=== PATIENT | female | born 1980 | race Caucasian/White ===

== ENCOUNTER 2018-04-14 18:16 | Emergency (ER) | payer MEDICAID, OTHER ==
[~2018-04-14 18:16] MED LIST: AUG500 PO; CEP500 PO; CIP500 PO; DIA5 PO; HYDR-3083 PO; IBU800 PO; IBUP-1618 PO; LOR5 PO; MEC25 PO; MET800 PO; METANXPT PO; MULT1CAP41 PO; MULTIVITAMIN; PER PO; PRE20 PO; PREN-67 PO; PRO25 PO; TRA50 PO; [UNRECOGNIZED DRUG - OTHER]; vitamins
[2018-04-14] MEDS ORDERED: NS(*) 0.9% 1000 ML BAG 1,000 ML IV ONE (18:53)
--- NOTE | 2018-04-14 18:53 | ER Report ---
History and Physical Time Seen By MD: 18:50 Hx. of Stated Complaint: ABD PRESSURE X 2 DAYS, TODAY VOMITING. PT REPORTS SEEING MD IN [place] AND TOLD THAT HER APPENDIX IS "ENLARGED" AND TOLD TO "WATCH IT" HPI/ROS CHIEF COMPLAINT: Abdominal pain HISTORY OF PRESENT ILLNESS: 37 year-old female presents to the ER complaining of severe right upper quadrant and right lower quadrant abdominal pain. Patient was seen in the ER and weak in 2 days ago. States she had a CAT scan to evaluate her right lower abdominal pain. She states that she had an enlarged appendix. She was advised a clear liquid diet. Patient notes that her pain is worse. She's been having some fever and chills. She's had no diarrhea, but notes severe nausea and no vomiting. Patient denies dysuria. Patient has a history of a . REVIEW OF SYSTEMS: Respiratory: No cough, no dyspnea. Cardiovascular: No chest pain, no palpitations. Gastrointestinal: As above Musculoskeletal: No back pain. Allergies: Coded Allergies: mustard (Verified Allergy, Mild, 04/14/18) venom-wasp (Verified Allergy, Mild, 04/14/18) Uncoded Allergies: BEE STINGS (Allergy, Mild, 06/18/09) Home Meds Active Scripts Promethazine Hcl (PROMETHAZINE HCL) 25 Mg Tablet, 25 MG PO Q4H PRN for NAUSEA/VOMITING, #14 TAB Prov:CHIP MOCK DO 04/14/18 Tramadol Hcl (TRAMADOL HCL) 50 Mg Tablet, 1 TAB PO Q4-6H for PAIN, #12 TAB Prov:CHIP MOCK DO 04/14/18 Reported Medications Tramadol Hcl (Ultram) 50 Mg Tab, 50 MG PO Q4-6H, 0 Refills 04/21/11 Hydrocodone Bit/Acetaminophen (Hydrocodone/Apap 7.5/500 Tb) 1 Each Tablet, 1 EACH PO Q4-6H, 0 Refills 04/21/11 Ibuprofen (Motrin) 400 Mg Tablet, 400 MG PO, #20 0 Refills 04/21/11 [vitamins] No Conflict Check, 0 Refills 04/21/11 Reviewed Nurses Notes: Yes Old Medical Records Reviewed: Yes Hx Smoking: No Hx Substance Use Disorder: No Hx Alcohol Use: No Constitutional Vital Sign - Last 24 Hours 04/14/18 04/14/18 04/14/18 04/14/18 18:30 19:00 19:01 19:16 Pulse 80 99 74 Resp 16 B/P (MAP) 132/102 124/95 (105) Pulse Ox 98 96 92 O2 Delivery Room Air 04/14/18 04/14/18 04/14/18 04/14/18 19:30 19:31 20:00 20:01 Pulse 72 81 B/P (MAP) 113/69 (84) 104/75 (85) Pulse Ox 90 90 04/14/18 04/14/18 04/14/18 04/14/18 20:06 20:30 20:36 20:51 Pulse 73 69 67 B/P (MAP) 103/62 (76) Pulse Ox 94 93 94 04/14/18 04/14/18 04/14/18 04/14/18 21:00 21:06 21:21 21:30 Pulse 70 80 B/P (MAP) 114/57 (76) 96/64 (75) Pulse Ox 92 92 04/14/18 04/14/18 04/14/18 04/14/18 21:36 21:51 22:00 22:05 Pulse 66 62 70 B/P (MAP) 97/69 (78) Pulse Ox 93 88 91 Physical Exam Vital signs stable, pulse ox normal General Appearance: The patient is alert, has no immediate need for airway protection and no current signs of toxicity. Mild distress, slightly pale appearing HEENT: Pupils equal and round no injection. TMs normal, oropharynx are redness or exudate, mucous members are moist Respiratory: Chest is non tender, lungs are clear to auscultation. Cardiac: regular rate and rhythm Gastrointestinal: Abdomen is soft, moderate tenderness in the right upper and right lower quadrant, there is some guarding in the right lower quadrant, no masses, bowel sounds normal. Musculoskeletal: Neck: Neck is supple and non tender. Extremities have full range of motion and are non tender. Skin: No rashes or lesions. DIFFERENTIAL DIAGNOSIS: After history and physical exam differential diagnosis was considered for abdominal pain including but not limited to appendicitis, cholecystitis, gastritis and urinary tract infection. Medical Decision Making Data Points Result Diagram: 04/14/18189904/14/181899 Laboratory Hematology Test 04/14/18 18:52 04/14/18 19:00 Urine Color Yellow Urine Clarity Clear Urine pH 5.0 pH (4.8-9.5) Urine Specific Mabel 1.018 Urine Protein Negative mg/dL (NEGATIVE) Urine Glucose (UA) Negative mg/dL (NEGATIVE) Urine Ketones Negative mg/dL (NEGATIVE) Urine Blood Negative (NEGATIVE) Urine Nitrite Negative (NEGATIVE) Urine Bilirubin Negative (NEGATIVE) Urine Urobilinogen Negative mg/dL (0.2-1.9) Urine Leukocyte Esterase Negative (NEGATIVE) Urine RBC 1 /HPF (0-2/HPF) Urine WBC <1 /HPF (0-5/HPF) Urine Squamous Epithelial Cells None /LPF (</=FEW) Urine Bacteria Negative /HPF (NONE-FEW) Urine Mucus None /HPF (NONE-FEW) Red Blood Count 4.63 M/uL (4.17-5.56) Mean Corpuscular Volume 91.5 fL (80.0-96.0) Mean Corpuscular Hemoglobin 31.4 pg (26.0-33.0) Mean Corpuscular Hemoglobin Concent 34.3 g/dL (32.0-36.0) Red Cell Distribution Width 17.7 % (11.5-14.5) Mean Platelet Volume 7.8 fL (7.2-11.1) Neutrophils (%) (Auto) 49.5 % (39.4-72.5) Lymphocytes (%) (Auto) 40.6 % (17.6-49.6) Monocytes (%) (Auto) 7.2 % (4.1-12.4) Eosinophils (%) (Auto) 0.9 % (0.4-6.7) Basophils (%) (Auto) 1.8 % (0.3-1.4) Nucleated RBC Relative Count (auto) 0.4 /100WBC Neutrophils # (Auto) 5.2 K/uL (2.0-7.4) Lymphocytes # (Auto) 4.3 K/uL (1.3-3.6) Monocytes # (Auto) 0.8 K/uL (0.3-1.0) Eosinophils # (Auto) 0.1 K/uL (0.0-0.5) Basophils # (Auto) 0.2 K/uL (0.0-0.1) Nucleated RBC Absolute Count (auto) 0.04 K/uL Sodium Level 138 mmol/L (137-145) Potassium Level 4.0 mmol/L (3.5-5.0) Chloride Level 102 mmol/L (98-107) Carbon Dioxide Level 23 mmol/L (22-31) Blood Urea Nitrogen 13 mg/dl (7-18) Creatinine 0.70 mg/dl (0.52-1.04) Glomerular Filtration Rate Calc > 60.0 Random Glucose 95 mg/dl (75-110) Lactate 1.8 mmol/L (0.7-2.1) Calcium Level 9.6 mg/dl (8.4-10.2) Total Bilirubin 0.9 mg/dl (0.2-1.3) Aspartate Amino Transf (AST/SGOT) 104 U/L (0-35) Alanine Aminotransferase (ALT/SGPT) 213 U/L (0-56) Alkaline Phosphatase 130 U/L (0-126) Total Protein 8.5 g/dl (6.3-8.2) Albumin 4.6 g/dl (3.5-5.0) Amylase Level 62 U/L (0-110) Lipase 177 U/L (23-300) Human Chorionic Gonadotropin, Qual Negative (NEGATIVE) Chemistry Test 04/14/18 18:52 04/14/18 19:00 Urine Color Yellow Urine Clarity Clear Urine pH 5.0 pH (4.8-9.5) Urine Specific Mabel 1.018 Urine Protein Negative mg/dL (NEGATIVE) Urine Glucose (UA) Negative mg/dL (NEGATIVE) Urine Ketones Negative mg/dL (NEGATIVE) Urine Blood Negative (NEGATIVE) Urine Nitrite Negative (NEGATIVE) Urine Bilirubin Negative (NEGATIVE) Urine Urobilinogen Negative mg/dL (0.2-1.9) Urine Leukocyte Esterase Negative (NEGATIVE) Urine RBC 1 /HPF (0-2/HPF) Urine WBC <1 /HPF (0-5/HPF) Urine Squamous Epithelial Cells None /LPF (</=FEW) Urine Bacteria Negative /HPF (NONE-FEW) Urine Mucus None /HPF (NONE-FEW) White Blood Count 10.5 k/uL (4.5-11.0) Red Blood Count 4.63 M/uL (4.17-5.56) Hemoglobin 14.5 g/dL (12.0-16.0) Hematocrit 42.3 % (34.0-47.0) Mean Corpuscular Volume 91.5 fL (80.0-96.0) Mean Corpuscular Hemoglobin 31.4 pg (26.0-33.0) Mean Corpuscular Hemoglobin Concent 34.3 g/dL (32.0-36.0) Red Cell Distribution Width 17.7 % (11.5-14.5) Platelet Count 428 K/uL (150-450) Mean Platelet Volume 7.8 fL (7.2-11.1) Neutrophils (%) (Auto) 49.5 % (39.4-72.5) Lymphocytes (%) (Auto) 40.6 % (17.6-49.6) Monocytes (%) (Auto) 7.2 % (4.1-12.4) Eosinophils (%) (Auto) 0.9 % (0.4-6.7) Basophils (%) (Auto) 1.8 % (0.3-1.4) Nucleated RBC Relative Count (auto) 0.4 /100WBC Neutrophils # (Auto) 5.2 K/uL (2.0-7.4) Lymphocytes # (Auto) 4.3 K/uL (1.3-3.6) Monocytes # (Auto) 0.8 K/uL (0.3-1.0) Eosinophils # (Auto) 0.1 K/uL (0.0-0.5) Basophils # (Auto) 0.2 K/uL (0.0-0.1) Nucleated RBC Absolute Count (auto) 0.04 K/uL Glomerular Filtration Rate Calc > 60.0 Lactate 1.8 mmol/L (0.7-2.1) Calcium Level 9.6 mg/dl (8.4-10.2) Total Bilirubin 0.9 mg/dl (0.2-1.3) Aspartate Amino Transf (AST/SGOT) 104 U/L (0-35) Alanine Aminotransferase (ALT/SGPT) 213 U/L (0-56) Alkaline Phosphatase 130 U/L (0-126) Total Protein 8.5 g/dl (6.3-8.2) Albumin 4.6 g/dl (3.5-5.0) Amylase Level 62 U/L (0-110) Lipase 177 U/L (23-300) Human Chorionic Gonadotropin, Qual Negative (NEGATIVE) Urinalysis Test 04/14/18 18:52 Urine Color Yellow Urine Clarity Clear Urine pH 5.0 pH (4.8-9.5) Urine Specific Mabel 1.018 Urine Protein Negative mg/dL (NEGATIVE) Urine Glucose (UA) Negative mg/dL (NEGATIVE) Urine Ketones Negative mg/dL (NEGATIVE) Urine Blood Negative (NEGATIVE) Urine Nitrite Negative (NEGATIVE) Urine Bilirubin Negative (NEGATIVE) Urine Urobilinogen Negative mg/dL (0.2-1.9) Urine Leukocyte Esterase Negative (NEGATIVE) Urine RBC 1 /HPF (0-2/HPF) Urine WBC <1 /HPF (0-5/HPF) Urine Squamous Epithelial Cells None /LPF (</=FEW) Urine Bacteria Negative /HPF (NONE-FEW) Urine Mucus None /HPF (NONE-FEW) EKG/Imaging Imaging Results: CT scan of the abdomen and pelvis with IV contrast was obtained. The results of the study are COMPUTED TOMOGRAPHY OF THE Abdomen and Pelvis with CONTRAST INDICATION: Abdominal pain x3 days. TECHNIQUE: Contiguous axial 3.[address] images were obtained through the abdomen and pelvis with contrast. Coronal and sagittal reformatted images were s ubmitted. COMPARISON: None. FINDINGS: Lung bases: The lung bases are clear. Liver and hepatic vasculature: No focal liver lesion. Gallbladder and bile ducts: Normal Spleen: Normal Pancreas: Normal Adrenals: Normal Kidneys, ureters and bladder: No hydronephrosis or obstruction. No stones. Normal-appearing bladder. Probable small cyst of the right kidney. Retroperitoneum and aorta: Normal caliber aorta. GI tract, mesentery and peritoneum: No bowel obstruction. No free fluid or free air. Normal appendix. No findings of diverticulitis. Uterus and adnexa: 1.7 cm cystic structure at the right ovary is likely an involuting cyst. Bones and soft tissues: No acute osseous abnormality. Small fat-containing paraumbilical hernia. IMPRESSION: 1. Normal appendix. 2. Probable involuting 1.7 cm cyst at the right ovary. The study was read by the radiologist. I viewed the images myself on the PACS system. Results: Ultrasound of the right upper quadrant abdominal was obtained. The results of the study are EXAMINATION: Limited right upper quadrant ultrasound Additional Pertinent history: Right upper quadrant pain. Elevated liver function tests. COMPARISON STUDIES: CT of the abdomen pelvis done earlier in the day. FINDINGS: Gallbladder: no stones, sludge, wall thickening or pericholecystic fluid. Negative ultrasound Burns sign. Liver: Normal size and echotexture. No focal normality. Liver surface is smooth. Portal vein is patent. No ascites. Common duct: normal 2.7 mm. Pancreas: No focal abnormality. Right kidney: negative Proximal IVC/Aorta: negative IMPRESSION: Normal right upper quadrant ultrasound. The study was read by the radiologist. I viewed the images myself on the PACS system. ED Course/Re-evaluation Clinical Indication for ER IV: Hydration, IV Access ED Course Patient was minute to an examination room. H&P was done. The differential diagnoses was considered. On clinical examination. Patient has both right upper quadrant and right lower quadrant. She had a CAT scan 2 days ago that showed an enlarged appendix. Patient's diagnostic studies are unremarkable except for elevated LFTs and alkaline phosphatase suspicious for cholecystitis. A CT scan of the abdomen and pelvis was unremarkable. An ultrasound of the right upper quadrant showed no pathology. Patient may have gallbladder sludge and may need a hiatus scan. She is advised to follow-up with general surgery for endoscopy and I did scan or any other diagnostic testing. That seems appropriate. Patient was discharged home on tramadol for pain and Phenergan for nausea control. Decision to Disposition Date: Apr 14, 2018 Decision to Disposition Time: 22:03 Depart Departure Latest Vital Signs Vital Signs Date Time Temp Pulse Resp B/P (MAP) Pulse Ox O2 Delivery O2 Flow Rate FiO2 04/14/18 22:05 70 91 04/14/18 22:00 97/69 (78) 04/14/18 18:30 16 Room Air Impression: Primary Impression: Abdominal pain Additional Impressions: Diarrhea Abnormal LFTs Condition: Improved Disposition: HOME OR SELF-CARE Referrals: GARTH PUENTES [place] Promethazine Hcl (PROMETHAZINE HCL) 25 Mg Tablet 25 MG PO Q4H PRN for NAUSEA/VOMITING, #14 TAB Prov: CHIP MOCK DO 04/14/18 Tramadol Hcl (TRAMADOL HCL) 50 Mg Tablet 1 TAB PO Q4-6H for PAIN, #12 TAB Prov: CHIP MOCK DO 04/14/18 Patient Instructions: Abdominal Pain (ED), Clear Liquid Diet (ED) Additional Instructions: Follow clear liquid diet for 24-48 hours, then advance to [place] diet Use Phenergan/promethazine for nausea control Use tramadol for pain control Follow-up with general surgery, Dr. Puentes for further evaluation and consideration of cholecystectomy Problem Qualifiers Primary Impression: Abdominal pain Abdominal location: upper abdomen, unspecified Qualified Codes: R10.10 - Upper abdominal pain, unspecified Additional Impressions: Diarrhea Diarrhea type: unspecified type Qualified Codes: R19.7 - Diarrhea, unspecified CHIP MOCK DO Apr 14, 2018 18:53
[2018-04-14] MEDS ORDERED: fentaNYL CITR 100 MCG/2 ML AMP IVP ONE (18:55)
[2018-04-14] MEDS ORDERED: ONDANSETRON 4 MG/2 ML VIAL IVP ONE (18:55)
[2018-04-14] MEDS ORDERED: IOPAMIDOL 76% 100 ML INFUS BTL 100 ML ONE (19:08)
[2018-04-14 19:14] LABS: PLATELET COUNT, AUTOMATED 428 K/uL (150-450)
--- NOTE | 2018-04-14 20:28 | RADIOLOGY IMAGING REPORT ---
FACILITY: [facility] - [place] PATIENT NAME: Mare Donald : 1980 MR: [id number] V: [id number] EXAM DATE: ORDERING PHYSICIAN: CHIP MOCK TECHNOLOGIST: Location: [facility] [place] Patient: Mare Donald : 1980 Visit/Account:[id number] Date of Sevice: 04/14/2018 COMPUTED TOMOGRAPHY OF THE Abdomen and Pelvis with CONTRAST INDICATION: Abdominal pain x3 days. TECHNIQUE: Contiguous axial 3.[address] images were obtained through the abdomen and pelvis with contr ast. Coronal and sagittal reformatted images were submitted. COMPARISON: None. FINDINGS: Lung bases: The lung bases are clear. Liver and hepatic vasculature: No focal liver lesion. Gallbladder and bile ducts: Normal Spleen: Normal Pancreas: Normal Adrenals: Normal Kidneys, ureters and bladder: No hydronephrosis or obstruction. No stones. Normal-appearing bladde r. Probable small cyst of the right kidney. Retroperitoneum and aorta: Normal caliber aorta. GI tract, mesentery and peritoneum: No bowel obstruction. No free fluid or free air. Normal appendi x. No findings of diverticulitis. Uterus and adnexa: 1.7 cm cystic structure at the right ovary is likely an involuting cyst. Bones and soft tissues: No acute osseous abnormality. Small fat-containing paraumbilical hernia. IMPRESSION: 1. Normal appendix. 2. Probable involuting 1.7 cm cyst at the right ovary. One of the following dose optimization techniques was utilized in the performance of this exam: Autom ated exposure control; adjustment of the mA and/or kV according to the patient's size; or use of an i terative reconstruction technique. Specific details can be referenced in the facility's radiology C T exam operational policy. Report Dictated By: Clint Alcaraz MD at 04/14/2018 8:13 PM Report E-Signed By: Clint Alcaraz MD at 04/14/2018 8:21 PM WSN:[id number]
[2018-04-14] MEDS ORDERED: PROMETHAZINE 25 MG/ML 1 ML AMP IVP ONE (20:40)
--- NOTE | 2018-04-14 21:40 | RADIOLOGY IMAGING REPORT ---
FACILITY: [facility] - [place], [place] PATIENT NAME: Mare Donald : 1980 MR: [id number] V: [id number] EXAM DATE: ORDERING PHYSICIAN: CHIP MOCK TECHNOLOGIST: Location: [facility] Patient: Mare Donald : 1980 Visit/Account:[id number] Date of Sevice: 04/14/2018 EXAMINATION: Limited right upper quadrant ultrasound Additional Pertinent history: Right upper quadrant pain. Elevated liver function tests. COMPARISON STUDIES: CT of the abdomen pelvis done earlier in the day. FINDINGS: Gallbladder: no stones, sludge, wall thickening or pericholecystic fluid. Negative ultrasound Burns sign. Liver: Normal size and echotexture. No focal normality. Liver surface is smooth. Portal vein is paten t. No ascites. Common duct: normal 2.7 mm. Pancreas: No focal abnormality. Right kidney: negative Proximal IVC/Aorta: negative IMPRESSION: Normal right upper quadrant ultrasound. Report Dictated By: Munir Bain at 04/14/2018 9:33 PM Report E-Signed By: Munir Bain at 04/14/2018 9:36 PM WSN:[id number]
[2018-04-14 22:00] VITALS: BP 97/69
[2018-04-14] MEDS ORDERED: traMADol 50 MG TAB TH 2 TAB/BOTTLE PO ONE (22:00)
[2018-04-14] MEDS ORDERED: PROMETHAZINE HCL 25 MG TAB TH 2 TAB/BOTTLE PO ONE (22:00)
[2018-04-14] MEDS ORDERED: TRAM-420 PO (22:05)
[2018-04-14] MEDS ORDERED: PROM-110 PO (22:05)
== END 2018-04-14 22:26 | disposition home or self-care (01) ==
LOC: ER 19:00
DX: R10.11 Right upper quadrant pain (principal); R10.31 Right lower quadrant pain; R19.7 Diarrhea, unspecified; R94.5 Abnormal results of liver function studies
CPT/HCPCS: 74177; 76705; 81001; 82150; 83605; 83690; 84703; 85025; 96361; 96374; 96375; 99284; C9399; J2405; J2550; J3010; J7030; Q9967; 82040; 82247; 82310; 82374; 82435; 82565; 82947; 84075; 84132; 84155; 84295; 84450; 84460; 84520

== ENCOUNTER 2018-04-21 01:04 | Day surgery (SDC) | payer OTHER ==
[2018-04-21] VITALS (7 sets, daily range): BP systolic 75–117; BP diastolic 51–80
[~2018-04-21] VITALS: Ht 157.5 cm; Wt 78.5 kg
[~2018-04-21 01:04] MED LIST changes: +PANT40TA65 PO; +PROM-110 PO; +SUCR1TAB85 PO; +TRAM-420 PO
[2018-04-21] MEDS ORDERED: PROPOFOL EMUL(*) 10MG/ML 20 ML 40 ML ONE (06:52)
[2018-04-21] MEDS ORDERED: GLYCOPYRROLATE 0.2MG/ML 1 ML INJ IVP ONE (09:05)
[2018-04-21] MEDS ORDERED: LIDOCAINE/SOD BICARB 8.4% SYR ID ONE (10:55)
[2018-04-21] MEDS ORDERED: NORMOSOL R SOLN(*) 1000 ML BAG 1,000 ML IV PRN (10:55)
--- NOTE | 2018-04-21 11:07 | Short(Outpt) Discharge Summary ---
Discharge Summary Reason for Hosp/Final Diag: (1) Abdominal pain Status: Acute Hospital Course & Plan: 37 yo f present for egd for ruq pain and melena. she tolerated the procedure well and there were no complications. she will be discharged home when criteria met. path pending. Departure Discharge to: Home Discharge Instructions Home Meds Active Scripts Sucralfate (CARAFATE) 1 Gm Tablet, 1 GM PO Q6H, #10 CAP Prov:GARTH WADE 04/20/18 Pantoprazole Sodium (PANTOPRAZOLE SODIUM) 40 Mg Tablet.dr, 40 MG PO BID, #30 TAB.SR Prov:GARTH WADE 04/20/18 Promethazine Hcl (PROMETHAZINE HCL) 25 Mg Tablet, 25 MG PO Q4H PRN for NAUSEA/VOMITING, #14 TAB Prov:CHIP MOCK DO 04/14/18 Discontinued Reported Medications Tramadol Hcl (Ultram) 50 Mg Tab, 50 MG PO Q4-6H, 0 Refills 04/21/11 Hydrocodone Bit/Acetaminophen (Hydrocodone/Apap 7.5/500 Tb) 1 Each Tablet, 1 EACH PO Q4-6H, 0 Refills 04/21/11 Ibuprofen (Motrin) 400 Mg Tablet, 400 MG PO, #20 0 Refills 04/21/11 [vitamins] No Conflict Check, 0 Refills 04/21/11 Discontinued Scripts Tramadol Hcl (TRAMADOL HCL) 50 Mg Tablet, 1 TAB PO Q4-6H for PAIN, #12 TAB Prov:CHIP MOCK DO 04/14/18 Diet: Regular Activity: As Tolerated Special Instructions: we will call you in 7-10 days with biopsy results. GARTH WADE Apr 21, 2018 11:07
--- NOTE | 2018-04-21 11:17 | NUR ---
1106-PT ARRIVES TO SD FROM OR ON CART, SBAR REPOT BEDSIDE. PT NOT RESPONSIVE T STIMULI AT THIS TIME. WILL CONTINUE TO MONITOR 1116-PT WAKES SPONT AT THIS TIME. TRAILED ON ROOM AIR.
--- NOTE | 2018-04-21 11:19 | NUR ---
1117-DR WADE TO BEDSIDE. PT GIVEN ICE CHIPS TO DRINK AT THIS TIME REPORTS SLIGHT SORE THROAT
--- NOTE | 2018-04-21 11:40 | NUR ---
1140-PT ATTEMPTING TO CONTACT RIDE. RN HAS ATTEMPTED WELL AND FAILED. PT DENIES NAUSEA AND REPORTS PAIN TOLERABLE.BP LOW. NOTED AT THIS TIME
--- NOTE | 2018-04-21 11:47 | NUR ---
1147-PT SITTING AND STANDING. DENIES DIZZINESS AND LIGHT HEADEDNESS. REQUESTS TO GET UP AND USE RESTROOM. HYPOTENSION NOTED AA THIS TIME. PT ACCOMPANIED TO BATHROOM AND INSTRUCTED AND SAFETY MEASURES. OTHER GARCIA VSS. PT TO BATHROOM AT THIS TIME
--- NOTE | 2018-04-21 12:06 | NUR ---
1200- PT BACK FROM BATHROOM. GIVEN VERBAL AND WRITTEN DISCHARGE INSTRUCTIONS. DENIES ANY QUESTIONS OR CONCERNS. PT BP TAKEN ON RETURN FROM BATHROOM STABLE. IV DISCONTINUED AT THIS TIME. 1205-PT ESCORTED TO ADMITTING ENTRANCE AT THIS TIME. DENIES ANY FURTHER QUESTIONS OR CONCERNS. PT TO AWAIT RISE. INSTRUCTED WHERE TO SEEK HELP IF NEEDED WHILE WAITING
== END 2018-04-21 12:06 | disposition home or self-care (01) ==
LOC: OR 01:04
PROVIDERS: ATTEND Surgery
DX: K29.70 Gastritis, unspecified, without bleeding (principal)
CPT/HCPCS: 43239; 87077; 88305; 88344; J2704; J3490

== ENCOUNTER → 2018-05-12 | Outpatient (CLI) | payer OTHER ==
[~2018-05-12] MED LIST changes: +SINCALIDE 5 MCG VIAL INJ ONE; +WATER FOR INJ,STERILE 20 ML 20 ML ONE
--- NOTE | 2018-05-12 15:12 | RADIOLOGY IMAGING REPORT ---
FACILITY: [facility] PATIENT NAME: Mare Donald : 1980 MR: [id number] V: [id number] EXAM DATE: ORDERING PHYSICIAN: GARTH WADE TECHNOLOGIST: Location: [facility] - [place] Patient: Mare Donald : 1980 Visit/Account:[id number] Date of Sevice: 05/12/2018 NM HIDA SCAN abdominal pain TECHNIQUE: 5.6 mCi Tc99M labeled Choletec was injected intravenously. A series of anterior gamma ca mich images were obtained of the abdomen. 3.2 micrograms of CCK was also administered for this study. COMPARISON STUDIES: Abdominal ultrasound 04/15/2018 which was negative for cholelithiasis FINDINGS: Liver uptake and excretion: There is prompt uniform hepatic uptake and prompt excretion into the bili steve system. Time to visualization: Bile ducts: 6 minutes. Gallbladder: 9 minutes. Free spill into the duodenum: 7 minutes. Duodenal- gastric reflux / extravasation: None. Calculated gallbladder ejection fraction: 94% IMPRESSION: Normal study. No evidence of obstruction or acalculus cholecystitis. Report Dictated By: Mango Mcclain MD at 05/12/2018 2:54 PM Report E-Signed By: Mango Mcclain MD at 05/12/2018 3:08 PM WSN:[id number]
== END ==
LOC: NUC 01:13
PROVIDERS: ATTEND Surgery
DX: R10.9 Unspecified abdominal pain (principal); R19.7 Diarrhea, unspecified
CPT/HCPCS: 78226; A9537; J2805

== ENCOUNTER 2018-05-17 04:27 | Emergency (ER) | payer OTHER ==
[~2018-05-17 04:27] MED LIST changes: -SINCALIDE 5 MCG VIAL INJ ONE; -WATER FOR INJ,STERILE 20 ML 20 ML ONE
--- NOTE | 2018-05-17 04:30 | ER Report ---
History and Physical Time Seen By MD: 04:29 HPI/ROS CHIEF COMPLAINT: Painful rash left arm HISTORY OF PRESENT ILLNESS: 37 year-old female who several days ago underwent a hiatus scan for right upper quadrant abdominal pain. She's also had a recent endoscopy. He is being followed by Dr. Puentes. Patient notes arm pain for sev eral days in her left arm. Patient has now broken out with a vesicular rash in a dermatomal distribution on her left upper extremity. Patient had an IV started in her left axillary arm and had radio nucleotide infused for a HIDA scan. Allergies: Coded Allergies: mustard (Verified Allergy, Mild, 05/17/18) venom-wasp (Verified Allergy, Mild, 05/17/18) Uncoded Allergies: BEE STINGS (Allergy, Mild, 06/18/09) Home Meds Active Scripts Oxycodone Hcl/Acetaminophen (PERCOCET 5-325 MG TABLET) 1 Each Tablet, 1 EACH PO Q4-6H PRN for PAIN, #10 Prov:CHIP MOCK DO 05/17/18 Valacyclovir Hcl (VALTREX) 1,000 Mg Tablet, 1000 MG PO BID, #14 Prov:CHIP MOCK DO 05/17/18 Sucralfate (CARAFATE) 1 Gm Tablet, 1 GM PO Q6H, #10 CAP Prov:GARTH PUENTES 04/20/18 Pantoprazole Sodium (PANTOPRAZOLE SODIUM) 40 Mg Tablet.dr, 40 MG PO BID, #30 TAB.SR Prov:GARTH PUENTES 04/20/18 Promethazine Hcl (PROMETHAZINE HCL) 25 Mg Tablet, 25 MG PO Q4H PRN for NAUSEA/VOMITING, #14 TAB Prov:CHIP MOCK DO 04/14/18 Reviewed Nurses Notes: Yes Old Medical Records Reviewed: Yes Hx Smoking: No Smoking Status: Never Smoker Hx Substance Use Disorder: No Hx Alcohol Use: No Constitutional Vital Sign - Last 24 Hours 05/17/18 05/17/18 05/17/18 04:30 04:30 05:00 Temp 98.0 Pulse 81 Resp 16 B/P (MAP) 129/86 (100) 129/86 102/77 (85) Pulse Ox 93 O2 Delivery Room Air Physical Exam General appearance: Alert no distress. Respiratory: Chest is non tender, lungs are clear to auscultation. Cardiac: Regular rate and rhythm Extremity: Examination of the left upper extremity reveals a dermatomal vesicular rash in the T1 C8 distribution DIFFERENTIAL DIAGNOSIS: After history and physical exam differential diagnosis was considered for contact dermatitis, allergic reaction to hiatus scan contrast, herpes zoster/shingles Medical Decision Making ED Course/Re-evaluation ED Course Patient was admitted to an examination room. H&P was done. The differential diagnosis was considered. On clinical examination. Patient has a dermatomal vesicular rash consistent with shingles. Clinical presentation is consistent with shingles. She'll be treated with Valtrex 1000 mg and Percocet for pain. Patient advised not to take her tramadol while taking the Percocet. Patient advised to follow up with primary care doctor for Dr Turpin or Toni if unimproved in 3-5 days. Decision to Disposition Date: May 17, 2018 Decision to Disposition Time: 04:41 Depart Departure Latest Vital Signs Vital Signs Date Time Temp Pulse Resp B/P (MAP) Pulse Ox O2 Delivery O2 Flow Rate FiO2 05/17/18 05:00 102/77 (85) 05/17/18 04:30 98.0 81 16 93 Room Air Impression: Primary Impression: Shingles outbreak Condition: Improved Disposition: HOME OR SELF-CARE Referrals: OLGA TURPIN MD, FARRUKH MD New Scripts Oxycodone Hcl/Acetaminophen (PERCOCET 5-325 MG TABLET) 1 Each Tablet 1 EACH PO Q4-6H PRN for PAIN, #10 Prov: CHIP MOCK DO 05/17/18 Valacyclovir Hcl (VALTREX) 1,000 Mg Tablet 1000 MG PO BID, #14 Prov: CHIP MOCK DO 05/17/18 Patient Instructions: Shingles (ED) Additional Instructions: Follow-up with primary care if unimproved in 3-5 days. Problem Qualifiers Primary Impression: Shingles outbreak Herpes zoster complications: without complications Qualified Codes: B02.9 - Zoster without complications CHIP MOCK DO May 17, 2018 04:30
[2018-05-17] MEDS ORDERED: VALA100062 PO (04:45)
[2018-05-17] MEDS ORDERED: OXYC-865 PO (04:46)
[2018-05-17] MEDS ORDERED: valACYclovir HCL 500 MG TAB PO ONE (04:55)
[2018-05-17] MEDS ORDERED: oxyCODONE/ACETAMIN 5/325MG TH 2 TAB/BOTTLE PO ONE (04:55)
[2018-05-17 05:00] VITALS: BP 102/77
== END 2018-05-17 05:09 | disposition home or self-care (01) ==
LOC: ER 04:52
DX: B02.9 Zoster without complications (principal)
CPT/HCPCS: 99283

== ENCOUNTER → 2018-05-26 | Outpatient (CLI) | payer OTHER ==
[~2018-05-26] MED LIST changes: +CITA-137 PO; +FLU60VIA41 IM; +HYDR-385 PO; +OXYC-865 PO; +VALA100062 PO
== END ==
LOC: LAB 10:03
PROVIDERS: ATTEND Emergency Medicine
DX: R94.5 Abnormal results of liver function studies (principal); F41.8 Other specified anxiety disorders
CPT/HCPCS: 36415; 82040; 82103; 82247; 82248; 82390; 82465; 82607; 82728; 82784; 83516; 83540; 83550; 83718; 84075; 84155; 84443; 84450; 84460; 84478; 86140; 86256; 86376

== ENCOUNTER 2018-09-05 20:58 | Emergency (ER) | payer OTHER ==
--- NOTE | 2018-09-05 21:00 | ER Report ---
History and Physical Time Seen By MD: 21:06 HPI/ROS CHIEF COMPLAINT: congestion, trouble breathing HISTORY OF PRESENT ILLNESS: This is a 37 year old female. She has been sick with congestion for about 6 days. nasal congestion, post-nasal drainage, ear fullness, sore throat. Now with a cough for a couple of days. Several co-workers with strep. No fevers. Had tried mucinex, then switched to a cold medicine, then switched to an over the counter allergy medicine thinking it might be allergies. Cough is non-productive. Has been prescribed albuterol inhalers in the past for upper respiratory infections. Chest tight, but no pain. No nausea or vomiting. Poor appetite, but drinking some extra fluids. Allergies: Coded Allergies: mustard (Verified Allergy, Mild, 09/05/18) venom-wasp (Verified Allergy, Mild, 09/05/18) Uncoded Allergies: BEE STINGS (Allergy, Mild, 06/18/09) Home Meds Active Scripts Benzonatate (BENZONATATE) 100 Mg Capsule, 100 MG PO TID PRN for COUGH, #15 CAP 0 Refills Prov:ESAU SOSA MD 09/05/18 Discontinued Scripts Citalopram Hydrobromide (CITALOPRAM HBR) 10 Mg Tablet, 10 MG PO QDAY, #30 TAB Prov:OLGA QUIROZ MD 05/24/18 Hydrocodone Bit/Acetaminophen (HYDROCODON-ACETAMINOPHEN 5-325) 1 Each Tablet, 1 EACH PO Q4H for PAIN, #20 TAB Prov:OLGA QUIROZ MD 05/24/18 Pantoprazole Sodium (PANTOPRAZOLE SODIUM) 40 Mg Tablet., 40 MG PO BID, #30 TAB.SR Prov:GARTH WADE 04/20/18 Reviewed Nurses Notes: Yes Hx Smoking: No Smoking Status: Never Smoker Exposure to Second Hand Smoke?: Yes (parent and smokes) Hx Substance Use Disorder: No Hx Alcohol Use: No Constitutional Vital Sign - Last 24 Hours 09/05/18 09/05/18 09/05/18 09/05/18 21:03 21:05 21:30 21:30 Temp 98.8 Pulse 73 71 Resp 16 16 B/P (MAP) 125/87 (100) 125/87 Pulse Ox 94 96 O2 Delivery Room Air Room Air 6/11/09/05/18 09/05/18 09/05/18 21:30 21:37 22:00 22:30 Pulse 71 76 92 80 Resp 16 B/P (MAP) 118/84 (95) 122/77 (92) 123/89 (100) Pulse Ox 95 93 93 Physical Exam General Appearance: The patient is alert. No acute distress. Eyes: Pupils are equal, round. Reactive to light. No pallor, injection or icterus. Extraocular movements are intact. ENT: Mucous membranes are moist. Normal oral mucosa. Posterior oropharynx with post nasal drainage and erythema. Nasal mucosa edematous, but not inflamed. Ear canals normal. Bilateral effusions in the ears, no redness. Neck: Supple and non tender. Has shotty anterior cervical lymphadenopathy. Respiratory: Lungs with diffuse rhonchi, no focal changes. No wheezing noted. There are no retractions or accessory muscle use. Cardiovascular: Regular rate and rhythm. No murmurs, gallops or rubs. Normal capillary refill. Gastrointestinal: Abdomen is soft and non tender. Nondistended. Normal active bowel sounds. Neurological: Alert and oriented x3. Cranial nerves II through XII show no acute deficits on my exam. No focal neurologic deficits Skin: Warm and dry. No rashes. Musculoskeletal: Extremities are nontender. No tenderness in palpation of the cervical, thoracic and lumbar spine. DIFFERENTIAL DIAGNOSIS: After history and physical exam, differential diagnosis was considered for patient with shortness of breath, cough and upper S2 symptoms indicating likely viral syndrome. Looking influenza, chest x-ray, and trial of an albuterol nebulizer given her past history. Medical Decision Making Data Points Laboratory Hematology Test 09/05/18 21:18 Influenza Virus Type A (PCR) Negative (NEGATIVE) Influenza Virus Type B (PCR) Negative (NEGATIVE) Chemistry Test 09/05/18 21:18 Influenza Virus Type A (PCR) Negative (NEGATIVE) Influenza Virus Type B (PCR) Negative (NEGATIVE) EKG/Imaging Imaging TWO VIEW CHEST 09/05/2018 9:25 PM. INDICATION: Cough, chest pain, shortness of breath. COMPARISON: 01/09/2007. FINDINGS: Lungs are well-expanded. The lungs are clear. No pneumothorax or pleural effusion. Heart size is normal. Mild S-shaped curvature of the thoracolumbar spine. IMPRESSION: No acute abnormality. Report Dictated By: David Sparrow MD at 09/05/2018 10:27 PM ED Course/Re-evaluation ED Course Negative influenza. Negative chest x-ray. Some improvement with Albuterol nebulizer. Upper respiratory infection, instructions reviewed with the patient. Decision to Disposition Date: Sep 05, 2018 Decision to Disposition Time: 22:57 Depart Departure Latest Vital Signs Vital Signs Date Time Temp Pulse Resp B/P (MAP) Pulse Ox O2 Delivery O2 Flow Rate FiO2 09/05/18 22:30 80 123/89 (100) 93 09/05/18 21:37 16 09/05/18 21:30 Room Air 09/05/18 21:05 98.8 Impression: Primary Impression: Upper respiratory infection Condition: Improved Disposition: HOME OR SELF-CARE Referrals: OLGA QUIROZ MD (PCP) New Scripts Benzonatate (BENZONATATE) 100 Mg Capsule 100 MG PO TID PRN for COUGH, #15 CAP 0 Refills Prov: ESAU SOSA MD 09/05/18 Patient Instructions: Upper Respiratory Infection (ED) Additional Instructions: Rest and increase fluid intake. You can keep taking Claritin. Would recommend getting the one with a decongestant to use twice a day. Take Guiafenesin (Mucinex) extended release twice a day. Take Tessalon Perles (Benzonatate) 100mg capsules every 8 hours as needed for cough. Albuterol inhaler, 2 inhalations every 4 hours as needed for shortness of breath. Problem Qualifiers Primary Impression: Upper respiratory infection URI type: unspecified viral URI Qualified Codes: J06.9 - Acute upper respiratory infection, unspecified ESAU SOSA MD Sep 05, 2018 21:00
[2018-09-05] MEDS ORDERED: ALBUTEROL 2.5 MG/3 ML NEB NEB ONE (21:25)
[2018-09-05 22:30] VITALS: BP 123/89
--- NOTE | 2018-09-05 22:31 | RADIOLOGY IMAGING REPORT ---
FACILITY: [facility] PATIENT NAME: Mare Donald : 1980 MR: [id number] V: [id number] EXAM DATE: ORDERING PHYSICIAN: ESAU SOSA TECHNOLOGIST: Location: [facility] Patient: Mare Donald : 1980 Visit/Account:[id number] Date of Sevice: 09/05/2018 TWO VIEW CHEST 09/05/2018 9:25 PM. INDICATION: Cough, chest pain, shortness of breath. COMPARISON: 01/09/2007. FINDINGS: Lungs are well-expanded. The lungs are clear. No pneumothorax or pleural effusion. Heart size is normal. Mild S-shaped curvature of the thoracolumbar spine. IMPRESSION: No acute abnormality. Report Dictated By: David Sparrow MD at 09/05/2018 10:27 PM Report E-Signed By: David Sparrow MD at 09/05/2018 10:28 PM WSN:[id number]
[2018-09-05] MEDS ORDERED: BENZ100C26 PO (22:59)
[2018-09-05] MEDS ORDERED: ALBUTEROL 8 GM INHALER INH ONE (23:00)
[2018-09-05] MEDS ORDERED: BENZONATATE 100 MG CAP PO ONE (23:00)
== END 2018-09-05 23:11 | disposition home or self-care (01) ==
LOC: ER 21:23
DX: J06.9 Acute upper respiratory infection, unspecified (principal)
CPT/HCPCS: 87502; 94640; 99283; J7613